=== PATIENT | female | born 1980 | race Caucasian/White ===

== ENCOUNTER → 2021-03-11 | Outpatient (CLI) | payer BC ==
[~2021-03-11] MED LIST: FISH OIL300 MG PO; MULTIVITAMINS1 EAC1 PO; NAPROSYN500 MG PO; NAPROXEN 250 M250 MG PO; NORCO 7.5-3251 EACH PO
== END ==
LOC: RAD 08:04
DX: M54.5 Low back pain (principal)
CPT/HCPCS: 72100

== ENCOUNTER → 2021-06-24 | Outpatient (CLI) | payer BC | LOC: KOH-I 14:28 | DX: M54.50 Low back pain, unspecified (principal); M51.36 Other intervertebral disc degeneration, lumbar region | CPT/HCPCS: 72148 ==

== ENCOUNTER → 2022-03-09 | Outpatient (CLI) | payer BC | LOC: HEART 5 14:44 | DX: R06.02 Shortness of breath (principal) | CPT/HCPCS: 94060; 94729 ==

== ENCOUNTER → 2022-03-26 | Outpatient (CLI) | payer BC | LOC: EXRD 13:09 | DX: E88.01 Alpha-1-antitrypsin deficiency (principal); R91.8 Other nonspecific abnormal finding of lung field | CPT/HCPCS: 71046 ==

== ENCOUNTER → 2022-04-16 | Outpatient (CLI) | payer BC | LOC: EXRD 08:51 | DX: M25.572 Pain in left ankle and joints of left foot (principal); M79.89 Other specified soft tissue disorders | CPT/HCPCS: 73610 ==